=== PATIENT | male | born 1995 | race African-American/Black ===

== ENCOUNTER 2018-03-01 13:15 | Emergency (ER) | payer SELFPAY ==
[~2018-03-01] VITALS: Ht 170.2 cm; Wt 96.0 kg
[2018-03-01 15:18] LABS: CHLORIDE 101 mEq/L (98-107)
[2018-03-01 15:23] LABS: BASOPHILS % 0.2 % (0.0-2.0); EOSINOPHILS % 0.1 % (0.0-5.0); HEMATOCRIT. 46.4 % (42.0-52.0); LYMPHOCYTES % 12.9 % (20.0-50.0); MEAN CORPUSCULAR HEMOGLOBIN 33.2 pg (28.0-32.0); MEAN CORPUSCULAR VOLUME 96.6 fL (80.0-94.0); MEAN PLATELET VOLUME 7.9 fl (7.4-10.4); MONOCYTES % 5.7 % (2.0-8.0); NEUTROPHILS % 81.1 % (40.0-76.0); PLATELET 255 x1000/uL (130-400); RED BLOOD CELL COUNT 4.81 mill/uL (4.7-6.1); RED CELL DISTRIBUTION WIDTH 12.2 % (11.6-14.6)
[2018-03-01 15:25] LABS: INR 1.1; PROTHROMBIN TIME 11.2 sec (9.4-11.6)
[2018-03-01 16:35] LABS: CLARITY URINE CLEAR (CLEAR); COLOR URINE YELLOW (YELLOW); KETONES URINE NEGATIVE (NEGATIVE); LEUKOCYTE ESTERASE URINE NEGATIVE (NEGATIVE); NITRITE URINE NEGATIVE (NEGATIVE); OCCULT BLOOD URINE 1+ (NEGATIVE); PROTEIN URINE NEGATIVE (NEGATIVE); UROBILINOGEN URINE 0.2 E.U./dL (0.2-1.0)
[2018-03-01] MEDS ORDERED: FAMOTIDINE 20MG/2ML VIAL IV STA (18:17)
[2018-03-01] MEDS ORDERED: SODIUM CHLORIDE 0.9% 1,000 ML IV ONE (18:17)
[2018-03-01] MEDS ORDERED: KETOROLAC 30MG/ML VIAL IV ONE (18:30)
[2018-03-01 19:50] VITALS: BP 134/79
== END 2018-03-01 21:25 | disposition home or self-care (01) ==
LOC: ER 15:36
DX: R10.13 Epigastric pain (principal); R11.2 Nausea with vomiting, unspecified; R19.7 Diarrhea, unspecified; R03.0 Elevated blood-pressure reading, without diagnosis of hypertension; R79.9 Abnormal finding of blood chemistry, unspecified; F17.210 Nicotine dependence, cigarettes, uncomplicated; Z65.3 Problems related to other legal circumstances
CPT/HCPCS: 36415; 74022; 80053; 81003; 83690; 85025; 85610; 96374; 96375; 99285; J1885; J3490; J7030; Z7610

== ENCOUNTER 2019-09-05 13:12 | Emergency (ER) | payer SELFPAY | END 2019-09-05 13:51 | disposition left against medical advice (07) | LOC: ER 13:12 | DX: Z53.21 Procedure and treatment not carried out due to patient leaving prior to being seen by health care provider (principal) ==

== ENCOUNTER 2019-09-05 14:53 | Emergency (ER) | payer SELFPAY ==
[~2019-09-05] VITALS: Ht 170.2 cm; Wt 105.0 kg
[2019-09-05] MEDS ORDERED: LIDOCAINE HCL/PF 1% 10 MG/ML 5ML VIAL IJ ONE (16:15)
[2019-09-05 18:02] VITALS: BP 131/86
== END 2019-09-05 18:03 | disposition home or self-care (01) ==
LOC: ER 14:53
DX: S06.899A Other specified intracranial injury with loss of consciousness of unspecified duration, initial encounter (principal); S01.511A Laceration without foreign body of lip, initial encounter; H02.843 Edema of right eye, unspecified eyelid
CPT/HCPCS: 12011; 70450; 70486; 99284; J3490

== ENCOUNTER 2019-09-14 11:26 | Emergency (ER) | payer SELFPAY ==
[~2019-09-14] VITALS: Ht 170.2 cm; Wt 97.5 kg
[2019-09-14 12:39] VITALS: BP 126/66
== END 2019-09-14 17:11 | disposition left against medical advice (07) ==
LOC: ER 11:26
DX: S01.511A Laceration without foreign body of lip, initial encounter (principal); X58.XXXA Exposure to other specified factors, initial encounter; Y93.89 Activity, other specified; Y92.89 Other specified places as the place of occurrence of the external cause; Y99.8 Other external cause status

== ENCOUNTER 2019-09-17 17:06 | Emergency (ER) | payer SELFPAY ==
[~2019-09-17] VITALS: Ht 170.2 cm; Wt 97.0 kg
[2019-09-17 17:35] VITALS: BP 126/68
== END 2019-09-17 22:37 | disposition home or self-care (01) ==
LOC: ER 17:06
DX: Z48.02 Encounter for removal of sutures (principal)
CPT/HCPCS: 99281; Z7610

== ENCOUNTER 2019-10-21 05:56 | Emergency (ER) | payer SELFPAY ==
[~2019-10-21] VITALS: Ht 170.2 cm; Wt 91.0 kg
[2019-10-21] MEDS ORDERED: KETOROLAC 15MG/ML VIAL IM ONE (07:15)
[2019-10-21] MEDS ORDERED: LIDOCAINE HCL 1% 20ML VIAL (Pyxis) INJ INFIL ONE (07:15)
[2019-10-21] MEDS ORDERED: TETANUS, DIPHTHERIA, PERTUSSIS VAC/PF 0.5ML (>7YR OLD) IM ONE (07:15)
[2019-10-21 08:42] VITALS: BP 107/58
== END 2019-10-21 09:56 | disposition home or self-care (01) ==
LOC: ER 05:56
DX: S41.112A Laceration without foreign body of left upper arm, initial encounter (principal); W26.0XXA Contact with knife, initial encounter; Y93.89 Activity, other specified; Y92.89 Other specified places as the place of occurrence of the external cause; Y99.8 Other external cause status
CPT/HCPCS: 12002; 90471; 90715; 96372; 99283; J1885; J3490

== ENCOUNTER 2019-10-31 20:25 | Emergency (ER) | payer SELFPAY ==
[~2019-10-31] VITALS: Ht 170.2 cm; Wt 90.0 kg
[2019-10-31 21:28] VITALS: BP 141/102
== END 2019-10-31 21:57 | disposition home or self-care (01) ==
LOC: ER 20:25
DX: Z48.00 Encounter for change or removal of nonsurgical wound dressing (principal)
CPT/HCPCS: 99281